=== PATIENT | male | born 1945 | race Hispanic/Latino ===

== ENCOUNTER 2021-05-29 10:45 | Outpatient (CLI) | payer MEDICARE ==
--- NOTE | 2021-05-29 13:41 | Cat Scan Report ---
CT ABDOMEN AND PELVIS WITH CONTRAST HISTORY: ABDOMINAL PAIN 100 ml omni 300 COMPARISON: None. TECHNIQUE: Axial CT images were obtained through the abdomen and pelvis after 100 cc of IV contrast. Sagittal and coronal reformatted images. All CT scans at this location are performed using CT dose re duction for ALARA by means of automated exposure control. FINDINGS: CT ABDOMEN: Lung Bases: Mild cardiomegaly. The visualized lung bases are well-aerated. Liver: No significant abnormality. Biliary: No significant abnormality. Spleen: No significant abnormality. Unenlarged. Pancreas: No significant abnormality. Adrenals: No significant abnormality. Kidneys: No significant abnormality. Few scattered tiny simple cysts are noted. Lymphatics: No lymphadenopathy. Vasculature: No significant abnormality. Bowel/Peritoneum: The stomach is empty but there is suggestion of mild diffuse gastric wall thickenin g which could represent a gastritis. Small bowel loops and colon are unremarkable. Normal appendix. N o evidence for free fluid, fluid collection or free air. CT PELVIS: : No significant abnormality. Osseous Structures: Mild multilevel thoracolumbar spondylosis. No acute injury or bony lesion. Additional Findings: Previous ventral wall hernia repair is suspected, correlate with history. No rec urrent hernia is appreciated. IMPRESSION: No acute process is identified. Consider a nonspecific gastritis. Mild cardiomegaly. Scattered simple renal cysts. Signer Name: Manuelito Freire Jr, MD Signed: 05/29/2021 1:36 PM Workstation Name: [id number]
== END 2021-05-29 10:46 | disposition home or self-care (01) ==
LOC: CT 10:45
PROVIDERS: ATTEND Urology
DX: N28.1 Cyst of kidney, acquired (principal); M47.815 Spondylosis without myelopathy or radiculopathy, thoracolumbar region
CPT/HCPCS: 36415; 74177; 82565; 84520; Q9967